=== PATIENT | male | born 1990 | race Caucasian/White ===

== ENCOUNTER 2016-12-18 23:08 | Emergency (ER) | payer BC ==
--- NOTE | ~2016-12-18 | CR2 ---
[facility] A Service of [facility] & [facility] / [facility] RADIOLOGY TEXT RESULTS PATIENT: HUNTER SANABRIA LOCATION: SED : 88 UNIT #: [id number] AGE: [address]: Rony Coburn DO SEX: M ORDER DR: [id number] [place] [id number] E MR#: [id number] Acc #: [id number] NAME: HUNTER SANABRIA : 1990 SEX: M STUDY DATE/TIME: 12/19/2016 1:31 UNIT: SED ROOM: STUDY DESCRIPTION: CR Abdomen Acute Series Attending Physician: Rony Coburn Ordering Physician: Rony Coburn Primary Care Physician: Primary Care Physician No MEDICAL IMAGING REPORT This report is preliminary unless electronic signature is present. EXAM Acute abdominal series. INDICATION Upper abdominal pain for 1 day. FINDINGS CHEST: PA view of the chest without comparison. Heart and mediastinal contour is normal. Lungs are clear. ABDOMEN: Upright and supine AP radiographs of the abdomen without comparison. The bowel gas pattern is nonobstructive. No free air. No acute osseous abnormalities. No radiopaque foreign body. IMPRESSION No acute findings. Nonobstructive bowel gas pattern. Dictated by... Hi Horton M.D. THIS IS AN ELECTRONICALLY VERIFIED REPORT Hi Horton M.D. at 12/19/2016 4:[address] TD: 12/19/2016 02:34 JOB #: [id number] MEDICAL IMAGING REPORT Page 1 of 1
--- NOTE | ~2016-12-18 | EKG ---
PATIENT: HUNTER SANABRIA UNIT #: [id number] Ventricular Rate: 64 BPM Atrial Rate: 64 BPM P-R Interval: 160 ms QRS Duration: 94 ms Q-T Interval: 388 ms QTC Calculation(Bezet): 400 ms P Goodman: 53 degrees Calculated R Goodman: 44 degrees Calculated T Goodman: 38 degrees Diagnosis Line: Normal sinus rhythm Diagnosis Line: Normal ECG Diagnosis Line: No previous ECGs available Diagnosis Line: Confirmed by JOEY VERDUZCO MD ([id number]) on Diagnosis Line: 12/22/2016 9:35:12 PM INTERPRETING MD: LUBA PEREZ
[~2016-12-18 23:08] MED LIST: BACITRACIN30 GM TOP; FLEXERIL10 MG PO; IBUPROFEN PO; NO MEDICATIONS; PERCOCET PO; VOLTAREN75 MG PO
[2016-12-19 00:47] LABS: BASOPHIL# 0.1 X10e3 (0-0.3); BASOPHIL% 0.5 % (0-2.5); EOSINOPHIL# 0.2 X10e3 (0-0.7); EOSINOPHIL% 1.7 % (0.0-7.0); HEMATOCRIT 45.8 % (38.0-50.0); HEMOGLOBIN 15.7 gm/dL (13.0-16.0); LYMPHOCYTE# 1.6 X10e3 (1.0-3.5); LYMPHOCYTE% 14.3 % (17.0-45.0); MEAN CELL VOLUME 82.5 FL (83-96); MEAN CORPUSCULAR HEMOGLOBIN 28.3 PG (28-34); MEAN CORPUSCULAR HGB CONC 34.3 g/dL (30-36); MEAN PLATELET VOLUME 7.6 FL (6.5-11.5); MONOCYTE# 0.8 X10e3 (0-1.0); MONOCYTE% 6.7 % (3.0-12.0); NEUTROPHIL# 8.8 X10e3 (1.5-7.1); NEUTROPHIL% 76.8 % (40-75); PLATELET COUNT 235 X10e3 (140-420); RED BLOOD COUNT 5.56 X10e (3.90-5.60); RED CELL DISTRIBUTION WIDTH 13.5 % (11.0-15.5); WHITE BLOOD COUNT 11.4 X10e3 (4.0-10.5)
[2016-12-19 00:48] LABS: DIFF IND NO
[2016-12-19 01:04] LABS: ALBUMIN SERUM 4.3 g/dL (3.5-5.0); ALKALINE PHOSPHATASE 86 U/L (32-92); ALT (SGPT) 25 U/L (10-40); AMYLASE 35 U/L (0-46); AST (SGOT) 21 U/L (10-42); BILIRUBIN,TOTAL 0.5 mg/dL (0.2-2.0); BLOOD UREA NITROGEN 16 mg/dL (9-23); CALCIUM SERUM 9.1 mg/dL (8.4-10.2); CARBON DIOXIDE 26 mmol/L (22-31); CHLORIDE 103 mmol/L (100-111); GLOM FILT RATE Estimated 102.7 mL/min (>60); GLUCOSE FASTING 112 mg/dL (70-110); LIPASE 49 U/L (22-51); POTASSIUM 3.7 mmol/L (3.5-5.1); PROTEIN TOTAL SERUM 7.4 g/dL (6.0-8.3)
[2016-12-19 01:06] LABS: BILIRUBIN, DIRECT <0.1 mg/dL (0.0-0.2); BILIRUBIN,INDIRECT 0.4 mg/dL (0.0-0.9); SODIUM 136 mmol/L (135-145)
== END 2016-12-19 02:15 | disposition home or self-care (01) ==
LOC: SED 23:08
PROVIDERS: Emergency Medicine
DX: K29.00 Acute gastritis without bleeding (principal)
CPT/HCPCS: 74022; 80048; 80076; 82150; 83690; 85025; 93005; 96372; 96374; 96375; 99284; C9113; J0500; J2765